=== PATIENT | male | born 1950 | race Hispanic/Latino ===

== ENCOUNTER 2020-01-02 05:12 | Emergency (ER) | payer MEDICARE ==
[~2020-01-02] VITALS: Ht 188 cm; Wt 97.5 kg
[2020-01-02] MEDS ORDERED: CEFTRIAXONE SOD 1 GM/NS 50 ML 50 ML IV ONE (05:45)
[2020-01-02] MEDS ORDERED: METHYLPREDNISOLONE SOD SUCC 125 MG/2ML VIAL IV ONE (05:45)
[2020-01-02] MEDS ORDERED: METHYLPREDNISOLONE SOD SUCC 125 MG/2ML VIAL ONE (06:12)
[2020-01-02] MEDS ORDERED: CEFTRIAXONE SOD 1 GM VIAL ONE (06:12)
[2020-01-02] MEDS ORDERED: AZITHROMYCIN 500MG/NS 250 ML 250 ML ONE (06:12)
[2020-01-02] MEDS ORDERED: AZITHROMYCIN 500MG/NS 250 ML 250 ML IV ONE (06:15)
[2020-01-02] MEDS ORDERED: ENOXAPARIN SODIUM INJ 100 MG/ML SYR SC STA (06:33)
[2020-01-02 06:44] LABS: INR 0.99; PROTHROMBIN TIME 13.6 seconds (11.9-14.5)
[2020-01-02] MEDS ORDERED: ACETAMINOPHEN 325 MG TAB PO ONE (06:45)
[2020-01-02] MEDS ORDERED: ENOXAPARIN SODIUM INJ 100 MG/ML SYR SC ONE (06:58)
[2020-01-02] MEDS ORDERED: ACETAMINOPHEN 325 MG TAB ONE (06:59)
[2020-01-02 07:09] VITALS: BP 136/99
== END 2020-01-02 07:20 | disposition short-term general hospital (02) ==
LOC: FSED 05:49
DX: R09.02 Hypoxemia (principal); J18.9 Pneumonia, unspecified organism; J06.9 Acute upper respiratory infection, unspecified
CPT/HCPCS: 36415; 71045; 80048; 80076; 82553; 83880; 85610; 87040; 93005; 99284; J0456; J0696; J1650; J2930

== ENCOUNTER 2022-05-30 05:36 | Emergency (ER) | payer MEDICARE ==
[~2022-05-30] VITALS: Ht 188 cm; Wt 97.5 kg
[2022-05-30] MEDS ORDERED: CIPRO HC OTIC S10 ML RIGHT EAR (06:23)
== END 2022-05-30 06:38 | disposition home or self-care (01) ==
LOC: FSED 06:12
DX: H60.91 Unspecified otitis externa, right ear (principal); Z94.1 Heart transplant status; I10 Essential (primary) hypertension; E78.5 Hyperlipidemia, unspecified; K21.9 Gastro-esophageal reflux disease without esophagitis; Z96.651 Presence of right artificial knee joint
CPT/HCPCS: 99282

== ENCOUNTER 2024-02-15 09:52 | Emergency (ER) | payer MEDICARE ==
[~2024-02-15] VITALS: Ht 188 cm; Wt 97.5 kg
[~2024-02-15 09:52] MED LIST: CIPRO HC OTIC S10 ML RIGHT EAR
[2024-02-15] MEDS ORDERED: HYDRALAZINE HCL 20 MG/ML VIAL IV PRN (10:30)
[2024-02-15 12:00] VITALS: PULSE 61; RESP 18; TEMP 98.3; O2SAT 99
== END 2024-02-15 12:00 | disposition home or self-care (01) ==
LOC: FSED 09:54
DX: R53.1 Weakness (principal); M51.369 Other intervertebral disc degeneration, lumbar region without mention of lumbar back pain or lower extremity pain; I10 Essential (primary) hypertension; E78.5 Hyperlipidemia, unspecified; K21.9 Gastro-esophageal reflux disease without esophagitis; Z94.1 Heart transplant status; Z96.651 Presence of right artificial knee joint
CPT/HCPCS: 70450; 71046; 80053; 81003; 82553; 83880; 84484; 85025; 99284